=== PATIENT | male | born 1980 | race Caucasian/White ===

== ENCOUNTER 2021-10-23 13:06 | Emergency (ER) | payer OTHER, SELFPAY ==
--- NOTE | ~2021-10-23 | XR_ITS ---
EXAMINATION: XR chest 2V 10/23/2021 13:33 INDICATION: Chest pain. Hypertension. PROCEDURE: 2 view chest COMPARISON: No prior studies for comparison. FINDINGS: The lungs are clear. The cardiomediastinal silhouette is within normal limits. There are no pleural effusions. There is no pneumothorax suspected. IMPRESSION: 1: NO ACUTE CARDIOPULMONARY DISEASE. Reviewed, dictated and finalized at location B.
[2021-10-23 13:11] VITALS: BP 171/114; PULSE 76; RESP 16; TEMP 36.6; O2SAT 100
--- NOTE | 2021-10-23 13:16 | ECG_ITS ---
Measurements Intervals [place] Rate: 75 P: 14 NC: 172 QRS: -18 QRSD: 115 T: 12 QT: 412 QTc: 462 Interpretive Statements SINUS RHYTHM INCOMPLETE RIGHT BUNDLE BRANCH BLOCK [90+ ms QRS DURATION, TERMINAL R IN V1/V2, 40+ ms S IN I/aVL/V4/V5/V6] BORDERLINE ECG NO PREVIOUS ECG AVAILABLE FOR COMPARISON Electronically Signed On 10-23-2021 14:17:03 CDT by Oliver Laguerre M.D.
[2021-10-23 14:17] VITALS: BP 176/108
--- NOTE | 2021-10-23 14:19 | ED.GENADULT ---
HPI - General Adult General Chief complaint: Chest Pain Stated complaint: pain when he breathes in Source: patient Mode of arrival: ambulatory Limitations: no limitations History of Present Illness HPI narrative: Patient presents for evaluation of chest pain. Symptom onset 1-1/2 hours ago. No history of similar symptoms. He states it feels like a pressure just above his sternum. Pain is worse with inspiration. Denies any cough or shortness of breath. No underlying history of hypertension, hyperlipidemia, diabetes. States that his normal blood pressure is usually around 130/90. He is concerned about his BP being elevated here today, with reading of 171/114. He does not smoke. No maternal or paternal hx of cardiac disease. Pt states stress levels are low. No hx of heartburn. No infectious symptoms including fever chills. Related Data Home Medications Medication Instructions Recorded Confirmed No Home Medications 10/23/21 10/23/21 Allergies Allergy/AdvReac Type Severity Reaction Status Date / Time No Known Allergies Allergy Verified 10/23/21 13:54 Review of Systems Review of Systems: CONSTITUTIONAL: Denies fever, chills, or sweats. EYES: Denies visual changes, redness, or discharge. ENT: Denies rhinorrhea, congestion, sore throat, or otalgia. CARDIOVASCULAR: Reports chest pain. Denies palpitations, or edema. RESPIRATORY: Denies cough or dyspnea. GASTROINTESTINAL: Denies abdominal pain, nausea, vomiting, or diarrhea. GENITOURINARY: Denies dysuria or hematuria. SKIN: Denies rash or itching. MUSCULOSKELETAL: Denies back pain, joint pain, or myalgia. NEUROLOGIC: Denies headache, numbness, dizziness, or weakness. PSYCHIATRIC: Denies anxiety or depression. [facility] Past Medical History Medical History No pertinent past medical history Surgical History Surgical History No pertinent past surgical history Family History Family History Father Diabetes mellitus Social History Social History Smoking status: Never smoker Substance use: never Living arrangements: with family Sexual Orientation (if Verbalized by the Patient): Straight or Heterosexual Spiritual care concerns: No Exam Narrative: GENERAL: Well-appearing, well-nourished, and in no acute distress. HEAD: Normocephalic, atraumatic. EYES: PERRLA and EOMI. ENT: Nares clear, no rhinorrhea or epistaxis. Mucous membranes moist. Oropharynx without tonsillar hypertrophy exudate or other lesions. Bilateral TMs pearly joyce nonbulging NECK: Supple. No adenopathy or masses. No carotid bruits or JVD CHEST: Clear to auscultation. No respiratory distress. No wheezes rales or rhonchi HEART: Regular rate and rhythm. No murmur heard. Normal peripheral pulses. ABDOMEN: Soft, nontender, nondistended, normal active bowel sounds. EXTREMITIES: Normal range of motion. No edema. SKIN: Warm, dry, no rash. NEURO: No focal deficits. Alert and oriented x3. PSYCH: Normal mood and affect. Course Course Emergency Course: This is a 41-year-old male who presented for evaluation of chest pain. Chest x-ray was normal. EKG showed right bundle branch block. Blood pressure was markedly elevated from his baseline. He was given 325 mg of aspirin. I advised to go to the hospital for further evaluation to have serial cardiac enzymes drawn. Patient was agreeable with this plan. I contacted [facility] and spoke with RN, Radha. She indicates that Dr. Oliveira will agree to accept patient to the department there. Patient was updated throughout his stay and was in agreement with plan of care including plans for transfer. Level of Care: Express Care Visit Vital Signs Vital signs: Vital Signs Temperature 36.6 C 10/23/
--- NOTE | 2021-10-23 14:21 | PC.NURSE ---
1415- 324mg Aspirin administered, verified by Melisa Tinsley.
--- NOTE | 2021-10-23 15:06 | ED.GENADULT ---
HPI - General Adult General Chief complaint: Chest Pain Stated complaint: pain when he breathes in Source: patient Mode of arrival: ambulatory Limitations: no limitations History of Present Illness HPI narrative: Patient presents for evaluation of chest pain for the last hour and a half. No history of similar symptoms. She states the pain is just above his sternum and feels like a pressure. He rates the pain 3 out of 10 in severity. No radicular component. He does not feel short of breath but notes pain is worse with inspiration. Denies cough or leg swelling. No personal history of DVT/PE. No underlying history of hypertension, hyperlipidemia, diabetes. He states that his blood sugars normally run in the 130/90's but he has not has his BP checked in several years. No family hx of CAD. He does not smoke. No recent injury. Denies any heartburn historically. States that stress level is low. He was surprised that his blood pressure was as elevated as it is today. Related Data Home Medications Medication Instructions Recorded Confirmed No Home Medications 10/23/21 10/23/21 Allergies Allergy/AdvReac Type Severity Reaction Status Date / Time No Known Allergies Allergy Verified 10/23/21 13:54 Review of Systems Review of Systems: CONSTITUTIONAL: Denies fever, chills, or sweats. EYES: Denies visual changes, redness, or discharge. ENT: Denies rhinorrhea, congestion, sore throat, or otalgia. CARDIOVASCULAR: Reports chest pain. Denies palpitations, or edema. RESPIRATORY: Denies cough or dyspnea. GASTROINTESTINAL: Denies abdominal pain, nausea, vomiting, or diarrhea. GENITOURINARY: Denies dysuria or hematuria. SKIN: Denies rash or itching. MUSCULOSKELETAL: Denies back pain, joint pain, or myalgia. NEUROLOGIC: Denies headache, numbness, dizziness, or weakness. PSYCHIATRIC: Denies anxiety or depression. [facility] Past Medical History Medical History No pertinent past medical history Surgical History Surgical History No pertinent past surgical history Family History Family History Father Diabetes mellitus Social History Social History (Reviewed 10/23/21 @ 14:22 by Oliver Greenberg, [facility], ) Smoking status: Never smoker Substance use: never Living arrangements: with family Sexual Orientation (if Verbalized by the Patient): Straight or Heterosexual Spiritual care concerns: No Exam Narrative: GENERAL: Well-appearing, well-nourished, and in no acute distress. HEAD: Normocephalic, atraumatic. EYES: PERRLA and EOMI. ENT: Nares clear, no rhinorrhea or epistaxis. Mucous membranes moist. Oropharynx without tonsillar hypertrophy exudate or other lesions. Bilateral TMs pearly joyce nonbulging NECK: Supple. No adenopathy or masses. No carotid bruits or JVD CHEST: Clear to auscultation. No respiratory distress. No wheezes rales or rhonchi HEART: Regular rate and rhythm. No murmur heard. Normal peripheral pulses. ABDOMEN: Soft, nontender, nondistended, normal active bowel sounds. EXTREMITIES: Normal range of motion. No edema. SKIN: Warm, dry, no rash. NEURO: No focal deficits. Alert and oriented x3. PSYCH: Normal mood and affect. Course Course Emergency Course: This is a 41-year-old male who presented for evaluation of chest pain. Pain was not reproducible on exam. Chest x-ray was normal. EKG showed incomplete right bundle branch block. His blood pressure was elevated and he has no history of chest pain. Therefore I believe he would benefit from serial cardiac enzymes. I recommended patient go to the emergency department for further evaluation, to which she was agreeable. I contacted [facility] and spoke with RN, Radha, who indicated that Dr. Oliveira will agree to accept patient to the department there. [facility]
== END 2021-10-23 14:17 | disposition short-term general hospital (02) ==
PROVIDERS: Emergency Provider Nurse Practitioner
DX: R07.9 Chest pain, unspecified (principal); I45.10 Unspecified right bundle-branch block
CPT/HCPCS: 71046; 93005; 99203; A9270; G0463